=== PATIENT | male | born 1985 | race African-American/Black ===

== ENCOUNTER 2021-08-10 08:00 | Outpatient (CLI) | payer OTHER | END 2021-08-10 08:30 | disposition home or self-care (01) | LOC: PPH VACUNA 08:00 | PROVIDERS: ATTEND Emergency Medicine Pediatric Emergency Medicine | DX: Z23 Encounter for immunization (principal) ==

== ENCOUNTER 2022-08-09 06:09 | Outpatient (CLI) | payer OTHER | END 2022-08-09 23:00 | disposition home or self-care (01) | LOC: LAB 06:09 | PROVIDERS: ATTEND Obstetrics & Gynecology | DX: Z20.828 Contact with and (suspected) exposure to other viral communicable diseases (principal); Z20.818 Contact with and (suspected) exposure to other bacterial communicable diseases ==

== ENCOUNTER 2022-08-09 08:00 | Outpatient (CLI) | payer OTHER | END 2022-08-09 08:05 | disposition home or self-care (01) | LOC: PPH VACUNA 08:00 | PROVIDERS: ATTEND Emergency Medicine Pediatric Emergency Medicine | DX: Z23 Encounter for immunization (principal) ==